=== PATIENT | male | born 1990 | race Caucasian/White ===

== ENCOUNTER 2024-05-08 11:59 | Emergency (ER) | payer SELFPAY ==
[~2024-05-08] VITALS: Ht 182.9 cm; Wt 111.1 kg
[2024-05-08] VITALS (7 sets, daily range): BP systolic 114–141; BP diastolic 71–93
[~2024-05-08 11:59] MED LIST: NAPROSYN500 MG OR; NO MEDS
== END 2024-05-08 14:16 | disposition home or self-care (01) | DRG 605 ==
LOC: ED 11:59
DX: S00.83XA Contusion of other part of head, initial encounter (principal); S00.03XA Contusion of scalp, initial encounter; W20.8XXA Other cause of strike by thrown, projected or falling object, initial encounter; Y92.89 Other specified places as the place of occurrence of the external cause; Y99.0 Civilian activity done for income or pay; F17.210 Nicotine dependence, cigarettes, uncomplicated; E11.9 Type 2 diabetes mellitus without complications